=== PATIENT | male | born 1995 | race Caucasian/White ===

== ENCOUNTER 2021-08-08 12:19 | Emergency (ER) | payer OTHER ==
[~2021-08-08] VITALS: Ht 175.3 cm; Wt 78.0 kg
[2021-08-08 13:02] LABS: BASOPHIL 0.6 % (0-2); EOSINOPHIL 0.9 % (0-5); HCT 53.3 % (42.0-52.0); HGB 18.2 g/dl (13.2-18.0); LYMPHOCYTE 27.3 % (15-48); MCH 29.8 pg (25.0-31.0); MCHC 34.1 g/dL (32.0-36.0); MCV 87.2 fL (78.0-100.0); MPV 9.1 fL (6.0-9.5); NEUTROPHIL 58.7 % (41-80); NRBC 0; PLT 215 K/uL (150-400); RBC 6.11 M/uL (4.70-6.00); RDW 12.5 % (11.5-14.0); WBC 5.3 K/uL (4.0-10.5)
[2021-08-08 13:20] LABS: BUN/CREAT RATIO (CALC) 12.5 RATIO; CREATININE 0.88 mg/dL (0.67-1.17); POTASSIUM 3.5 mmol/L (3.5-5.1)
[2021-08-08] MEDS ORDERED: ZOFRAN4 M1 PO (14:27)
== END 2021-08-08 15:05 | disposition home or self-care (01) ==
LOC: FER 12:19
PROVIDERS: Nurse Practitioner Family
DX: U07.1 COVID-19 (principal)
CPT/HCPCS: 36415; 71045; 80048; 85025; J7030